=== PATIENT | female | born 1955 | race Caucasian/White ===

== ENCOUNTER → 2019-05-12 | Day surgery (SDC) | payer BC ==
[2019-05-12] VITALS (8 sets, daily range): BP systolic 98–127; BP diastolic 51–62
[~2019-05-12] MED LIST: ACETAMINOPHEN(*)1000 MG/100 ML 100 ML IVPB ONE; CEP500 PO; DEXAMETHASONE SOD PHOS 10MG/ML ONE; DOCU-416 PO; HALOPERIDOL LACT 5 MG/ML VIAL IM ONE; HYDROMORPHONE HCL 1 MG/ML SYRINGE IVP ONE; IOPAMIDOL 76% 100 ML INFUS BTL 100 ML ONE; IOPAMIDOL 76% 50 ML INFUS BTL 50 ML ONE; KETAMINE HCL 200 MG/20 ML MDV ONE; KETAMINE HCL-NS 50 MG/5 ML SYR IVP ONE; LIDOCAINE MPF 1% 5 ML VIAL ONE; LOR5 PO; MAG HYD/AL HYD/SIMETH 30ML UDC PO ONE; MIDAZOLAM 2 MG/2 ML VIAL ONE; NORMOSOL R SOLN(*) 1000 ML BAG 1,000 ML IV ONE; NS(*) 0.9% 1000 ML BAG 1,000 ML IV ONE; ONDANSETRON 4 MG/2 ML VIAL IVP ONE; ONDANSETRON 4 MG/2 ML VIAL ONE; PROPOFOL EMUL(*) 10MG/ML 20 ML 20 ML ONE; ROCURONIUM BR 10 MG/ML 5 ML SY 5 ML ONE; ROPIVACAINE 0.5% 20 ML VIAL ONE; SCOPOLAMINE 1.5 MG PATCH TD ONE; SUGAMMADEX SOD 200 MG/2 ML SDV ONE; TRAM-420 PO; cefTRIAXone(*) 1 GM VIAL 1 GM in WATER STERILE(*) 10 ML VIAL 10 ML IVP ONE; fentaNYL CITR 100 MCG/2 ML AMP IVP ONE; fentaNYL CITR 100 MCG/2 ML AMP ONE; fentaNYL CITR 250 MCG/5 ML AMP ONE
--- NOTE | 2019-05-12 05:51 | ER Report ---
History and Physical Time Seen By MD: 05:46 (YOANNA GILLIS DO) HPI/ROS CHIEF COMPLAINT: Abdominal pain HISTORY OF PRESENT ILLNESS: 63-year-old female presents ambulatory to the ER complaining of severe epigastric pain, onset 1 hour prior to arrival. Patient admits to vomiting several times on the way over in the car. Patient status post vaginal hysterectomy. Patient notes no dysuria, no frequency, no fever or chills. No change in her bowel habits. Patient reports she did have distant history of problems with her gallbladder and was advised to have her gallbladder removed. She describes it as shrunken and contracted. She never did follow-up. She thinks his pain might be similar. REVIEW OF SYSTEMS: Respiratory: No cough, no dyspnea. Cardiovascular: No chest pain, no palpitations. Gastrointestinal: As above Musculoskeletal: No back pain. (YOANNA GILLIS DO) Allergies: Coded Allergies: No Known Drug Allergies (Verified , 04/30/10) Home Meds Active Scripts Docusate Sodium (COLACE) 100 Mg Capsule, 1 CAP PO BID, #30 CAP 0 Refills TAKE WITH A FULL GLASS OF WATER Prov:HAYDER YOST MD 05/12/19 Tramadol Hcl (TRAMADOL HCL) 50 Mg Tablet, 1 TAB PO Q4H PRN for PAIN, #20 TAB 0 Refills Prov:HAYDER YOST MD 05/12/19 Reviewed Nurses Notes: Yes Old Medical Records Reviewed: Yes (YOANNA GILLIS DO) Hx Substance Use Disorder: No Hx Alcohol Use: No (YOANNA GILLIS DO) Constitutional Vital Sign - Last 24 Hours 05/12/19 05/12/19 05/12/19 05/12/19 05:53 05:55 06:00 06:19 Temp 98.1 Pulse 71 57 Resp 18 B/P (MAP) 137/79 (98) 137/79 112/62 (79) Pulse Ox 94 100 O2 Delivery Room Air 05/12/19 05/12/19 05/12/19 05/12/19 06:30 06:35 06:55 07:00 Pulse 75 64 B/P (MAP) 125/78 (94) 118/69 (85) Pulse Ox 100 91 05/12/19 05/12/19 05/12/19 05/12/19 07:15 07:30 07:35 07:55 Pulse 62 63 64 B/P (MAP) 109/60 (76) Pulse Ox 97 97 96 05/12/19 08:00 B/P (MAP) 123/66 (85) (ASHLEY DOMINGUEZ MD) Physical Exam General Appearance: The patient is alert, has no immediate need for airway protection and no current signs of toxicity. Vital signs stable, afebrile, pulse ox normal, cool, pale, dry skin Eyes: Pupils equal and round no injection. Respiratory: Chest is non tender, lungs are clear to auscultation. Cardiac: regular rate and rhythm Gastrointestinal: Abdomen is soft, mild epigastric and right upper quadrant tenderness, positive Hernandez sign no masses, bowel sounds normal. Musculoskeletal: Neck: Neck is supple and non tender. Extremities have full range of motion and are non tender. Skin: No rashes or lesions. DIFFERENTIAL DIAGNOSIS: After history and physical exam differential diagnosis was considered for abdominal pain including but not limited to appendicitis, cholecystitis, gastritis and urinary tract infection. (YOANNA GILLIS DO) Medical Decision Making Data Points Result Diagram: 05/12/19 0600 05/12/19 0600 Laboratory Hematology Test 05/12/19 06:00 White Blood Count 5.2 k/uL (4.5-11.0) Red Blood Count 4.96 M/uL (4.17-5.56) Hemoglobin 14.6 g/dL (12.0-16.0) Hematocrit 42.7 % (34.0-47.0) Mean Corpuscular Volume 86.1 fL (80.0-96.0) Mean Corpuscular Hemoglobin 29.5 pg (26.0-33.0) Mean Corpuscular Hemoglobin Concent 34.3 g/dL (32.0-36.0) Red Cell Distribution Width 13.6 % (11.5-14.5) Platelet Count 285 K/uL (150-450) Mean Platelet Volume 7.1 fL (7.2-11.1) L Neutrophils (%) (Auto) 52.4 % (39.4-72.5) Lymphocytes (%) (Auto) 35.1 % (17.6-49.6) Monocytes (%) (Auto) 6.7 % (4.1-12.4) Eosinophils (%) (Auto) 4.6 % (0.4-6.7) Basophils (%) (Auto) 1.2 % (0.3-1.4) Nucleated RBC Relative Count (auto) 0.1 /100WBC Neutrophils # (Auto) 2.7 K/uL (2.0-7.4) Lymphocytes # (Auto) 1.8 K/uL (1.3-3.6) Monocytes # (Auto) 0.3 K/uL (0.3-1.0) Eosinophils # (Auto) 0.2 K/uL (0.0-0.5) Basophils # (Auto) 0.1 K/uL (0.0-0.1) Nucleated RBC Absolute Count (auto) 0.00 K/uL Chemistry Test 05/12/19 00:00 05/12/19 06:00 Troponin I < 0.012 ng/ml Sodium Level 138 mmol/L (137-145) Potassium Level 3.5 mmol/L (3.5-5.0) Chloride Level 104 mmol/L (98-107) Carbon Dioxide Level 24 mmol/L (22-31) Blood Urea Nitrogen 13 mg/dl (7-18) Creatinine 0.80 mg/dl (0.52-1.04) Glomerular Filtration Rate Calc > 60.0 Random Glucose 153 mg/dl (75-110) Calcium Level 9.5 mg/dl (8.4-10.2) Total Bilirubin 0.5 mg/dl (0.2-1.3) Aspartate Amino Transf (AST/SGOT) 28 U/L (0-35) Alanine Aminotransferase (ALT/SGPT) 43 U/L (0-56) Alkaline Phosphatase 71 U/L (0-126) Total Protein 7.8 g/dl (6.3-8.2) Albumin 4.3 g/dl (3.5-5.0) Amylase Level 72 U/L (0-110) Lipase 122 U/L (23-300) Serology Test 05/12/19 00:00 Helicobacter pylori IgG Antibody Negative (NEGATIVE) Urinalysis Test 05/12/19 05:52 Urine Color Yellow Urine Clarity Clear Urine pH 5.0 pH (4.8-9.5) Urine Specific [place] 1.014 Urine Protein Negative mg/dL (NEGATIVE) Urine Glucose (UA) Negative mg/dL (NEGATIVE) Urine Ketones Negative mg/dL (NEGATIVE) Urine Blood Small (NEGATIVE) Urine Nitrite Negative (NEGATIVE) Urine Bilirubin Negative (NEGATIVE) Urine Urobilinogen Negative mg/dL (0.2-1.9) Urine Leukocyte Esterase Trace (NEGATIVE) Urine RBC 1 /HPF (0-2/HPF) Urine WBC 2 /HPF (0-5/HPF) Urine Squamous Epithelial Cells Few /LPF (</=FEW) Urine Bacteria Negative /HPF (NONE-FEW) Urine Mucus Few /HPF (NONE-FEW) (ASHLEY DOMINGUEZ MD) EKG/Imaging EKG Interpretation 12 lead EK Rhythm: normal sinus rhythm [place]: normal QRS: normal ST segments: normal, no evidence of ischemia or dysrhythmia, no previous EKGs for comparison (YOANNA GILLIS DO) Imaging FACILITY: [facility] [place] PATIENT NAME: Diane Mena : 1955 MR: [id number] V: [id number] EXAM DATE: ORDERING PHYSICIAN: YOANNA GILLIS TECHNOLOGIST: Location: Patient: Diane Mena : 1955 Visit/Account:[id number] Date of Sevice: 05/12/2019 GALLBLADDER HISTORY: Right upper quadrant pain COMPARISON: None. FINDINGS: Gallbladder: There are a few mobile shadowing gallstones. No gallbladder wall thickening. Positive sonographic Hernandez's sign.. Bile ducts: There is no biliary ductal dilation with the CBD measuring 4 mm. Liver: Negative. Pancreas: Negative. Right kidney: Negative. Upper abdominal aorta and IVC: Patent. Ascites: None visualized. Other findings: None significant IMPRESSION: 1. There are a few multiple shadowing gallstones. Positive sonographic Hernandez's sign although there is no gallbladder wall thickening. 2. Negative for biliary ductal dilatation. Report Dictated By: Morro Gutiérrez MD at 05/12/2019 8:22 AM Report E-Signed By: Morro Gutiérrez MD at 05/12/2019 8:26 AM WSN:[id number] FACILITY: [facility] [place] PATIENT NAME: Diane Mena : 1955 MR: [id number] V: [id number] EXAM DATE: [id number] ORDERING PHYSICIAN: ASHLEY DOMINGUEZ TECHNOLOGIST: Location: Patient: Diane Mena : 1955 Visit/Account:[id number] Date of Sevice: 05/12/2019 CT ABDOMEN PELVIS W/ CON HISTORY: epigastric and RUQ pain TECHNIQUE: Axial images were obtained through the abdomen and pelvis with intravenous contrast . One of the following dose optimization techniques was utilized in the performance of this exam: automated exposure control; adjustment of the mA and/or kv according to patient size; or use of iterative reconstruction technique. Specific details can be referenced in the facility's radiology CT exam operational policy. CONTRAST: 75 cc of Isovue-370 COMPARISON: Ultrasound 05/12/2019 FINDINGS: Visualized lung bases: Mild dependent bibasilar opacities, likely atelectasis. Hepatobiliary: Gallstones. Mild enhancement of the gallbladder wall. Common bile duct measures 6-7 mm with mild tapering towards the ampulla. Spleen: Negative. Adrenals: Negative. Pancreas: Negative. Kidneys/ureters/bladder: 3 mm right lower pole simple renal cysts. No hydronephrosis. Bowel/peritoneum/mesentery: Unusual segments of small bowel within the left upper quadrant with some fluid-filled and some containing food material measuring up to 2.5 cm. Minimal edema within the adjacent fat. Vessels: Negative. Lymph nodes: Negative. Pelvic genitourinary: Hysterectomy. Bones/body wall: 2 mm anterolisthesis from L4-L5 with mild facet arthropathy.. Other findings: None significant IMPRESSION: 1. Gallstones with mild enhancement of the gallbladder wall. There is a positive sonographic Hernandez's sign on earlier ultrasound. Recommend clinical correlation for cholecystitis. Common bile duct measures 6-7 mm with tapering towards ampulla. 2. Unusual appearing small bowel loops within the left upper quadrant measuring up to 2.5 cm with minimal edema within the adjacent fat without discrete obstructive features which can be seen with enteritis. Report Dictated By: Morro Gutiérrez MD at 05/12/2019 9:03 AM Report E-Signed By: Morro Gutiérrez MD at 05/12/2019 9:20 AM WSN:[id number] (ASHLEY DOMINGUEZ MD) ED Course/Re-evaluation Clinical Indication for ER IV: Hydration, IV Access ED Course Care turned over to Dr. Walker at shift change with diagnostic ultrasound of the right upper quadrant or CT scan abdomen and pelvis with IV contrast pending. The testis been ordered, but the network operations technician was unavailable. Patient's pain was under control. Her laboratory studies were unremarkable. Decision to Disposition Date: May 12, 2019 Decision to Disposition Time: 06:09 (YOANNA GILLIS DO) ED Course 05/12/2019 11:41:46 am patient with likely atypical presentation of acute cholecystitis based on presentation patient with persistent pain. Case was discussed with the on-call surgeon Dr. Yost; he would like us to start antibiotics keep the patient nothing by mouth and she will be going to the OR later this morning. Patient was made aware and has no questions or concerns at time of disposition. 05/12/2019 12:26:[address] Bernal has now come to see the patient. I thought process is perhaps this is more of a gastritis type picture he would like us to have the fentanyl that the patient just got wear off and try GI cocktail if this seems to help we will discharge her on proton pump inhibitor. However if this does not help her pain Dr. Bernal will consider taking her gallbladder out. Decision to Disposition Date: May 12, 2019 Turned Over Accepted care of patient at 0700; labs normal, except for slightly elevated glucose, but doubt this is the cause of patient's symptoms. Awaiting ultrasound, patients pain is currently undercontrol. (ASHLEY DOMINGUEZ MD) Depart Departure Latest Vital Signs Vital Signs Date Time Temp Pulse Resp B/P (MAP) Pulse Ox O2 Delivery O2 Flow Rate FiO2 05/12/19 08:00 123/66 (85) 05/12/19 07:55 64 96 05/12/19 05:55 98.1 18 Room Air (ASHLEY DOMINGUEZ MD) Impression: Primary Impression: Acute cholecystitis Condition: Improved Disposition: ADMIT FROM ER TO OR (To Dr Yost) New Scripts Docusate Sodium (COLACE) 100 Mg Capsule 1 CAP PO BID, #30 CAP 0 Refills TAKE WITH A FULL GLASS OF WATER Prov: HAYDER YOST MD 05/12/19 Tramadol Hcl (TRAMADOL HCL) 50 Mg Tablet 1 TAB PO Q4H PRN for PAIN, #20 TAB 0 Refills Prov: HAYDER YOST MD 05/12/19 YOANNA GILLIS DO May 12, 2019 05:50 ASHLEY DOMINGUEZ MD May 12, 2019 07:20
--- NOTE | 2019-05-12 06:16 | EKG ---
FACILITY: [facility] PATIENT NAME: MAURIZIO ARREGUIN : [id number] MR: [id number] V: [id number] EXAM DATE: ORDERING PHYSICIAN: YOANNA GILLIS TECHNOLOGIST: MERLYN Test Reason : NAUSEA Blood Pressure : / mmHG Vent. Rate : 063 BPM Atrial Rate : 063 BPM P-R Int : 172 ms QRS Dur : 080 ms QT Int : 446 ms P-R-T Axes : 011 050 027 degrees QTc Int : 456 ms Normal sinus rhythm Normal ECG No previous ECGs available Confirmed by HAYDER GALEANA ([id number]) on 05/12/2019 6:40:38 AM Referred By: Confirmed By:HAYDER GALEANA
[2019-05-12 06:20] LABS: PLATELET COUNT, AUTOMATED 285 K/uL (150-450)
--- NOTE | 2019-05-12 08:34 | RADIOLOGY IMAGING REPORT ---
FACILITY: [facility] [place] PATIENT NAME: Diane Mena : 1955 MR: [id number] V: [id number] EXAM DATE: ORDERING PHYSICIAN: YOANNA GILLIS TECHNOLOGIST: Location: [facility] [place] Patient: Diane Mena : 1955 Visit/Account:[id number] Date of Sevice: 05/12/2019 GALLBLADDER HISTORY: Right upper quadrant pain COMPARISON: None. FINDINGS: Gallbladder: There are a few mobile shadowing gallstones. No gallbladder wall thickening. Positive so nographic Hernandez's sign.. Bile ducts: There is no biliary ductal dilation with the CBD measuring 4 mm. Liver: Negative. Pancreas: Negative. Right kidney: Negative. Upper abdominal aorta and IVC: Patent. Ascites: None visualized. Other findings: None significant IMPRESSION: 1. There are a few multiple shadowing gallstones. Positive sonographic Hernandez's sign although there i s no gallbladder wall thickening. 2. Negative for biliary ductal dilatation. Report Dictated By: Morro Gutiérrez MD at 05/12/2019 8:22 AM Report E-Signed By: Morro Gutiérrez MD at 05/12/2019 8:26 AM WSN:[id number]
--- NOTE | 2019-05-12 09:27 | RADIOLOGY IMAGING REPORT ---
FACILITY: [facility] PATIENT NAME: Diane Mena : 1955 MR: [id number] V: [id number] EXAM DATE: ORDERING PHYSICIAN: ASHLEY DOMINGUEZ TECHNOLOGIST: Location: [facility] [place] Patient: Diane Mena : 1955 Visit/Account:[id number] Date of Sevice: 05/12/2019 CT ABDOMEN PELVIS W/ CON HISTORY: epigastric and RUQ pain TECHNIQUE: Axial images were obtained through the abdomen and pelvis with intravenous contrast . One of the following dose optimization techniques was utilized in the performance of this exam: automate d exposure control; adjustment of the mA and/or kv according to patient size; or use of iterative rec onstruction technique. Specific details can be referenced in the facility's radiology CT exam operati onal policy. CONTRAST: 75 cc of Isovue-370 COMPARISON: Ultrasound 05/12/2019 FINDINGS: Visualized lung bases: Mild dependent bibasilar opacities, likely atelectasis. Hepatobiliary: Gallstones. Mild enhancement of the gallbladder wall. Common bile duct measures 6-7 m m with mild tapering towards the ampulla. Spleen: Negative. Adrenals: Negative. Pancreas: Negative. Kidneys/ureters/bladder: 3 mm right lower pole simple renal cysts. No hydronephrosis. Bowel/peritoneum/mesentery: Unusual segments of small bowel within the left upper quadrant with some fluid-filled and some containing food material measuring up to 2.5 cm. Minimal edema within the elias cent fat. Vessels: Negative. Lymph nodes: Negative. Pelvic genitourinary: Hysterectomy. Bones/body wall: 2 mm anterolisthesis from L4-L5 with mild facet arthropathy.. Other findings: None significant IMPRESSION: 1. Gallstones with mild enhancement of the gallbladder wall. There is a positive sonographic Hernandez's sign on earlier ultrasound. Recommend clinical correlation for cholecystitis. Common bile duct measu res 6-7 mm with tapering towards ampulla. 2. Unusual appearing small bowel loops within the left upper quadrant measuring up to 2.5 cm with min imal edema within the adjacent fat without discrete obstructive features which can be seen with enter itis. Report Dictated By: Morro Gutiérrez MD at 05/12/2019 9:03 AM Report E-Signed By: Morro Gutiérrez MD at 05/12/2019 9:20 AM WSN:[id number]
--- NOTE | 2019-05-12 13:56 | Gen Surgery History & Physical ---
History of Present Illness Chief Complaint Epigastric abdominal pain History of Present Illness 63-year-old female comes into the emergency room with upper abdominal pain mainly in her epigastrium that started at about 4:00 this morning, almost 10 hours ago from the time of this note. She reports she has had intermittent upper abdominal symptoms and she has even been told that she's had gallbladder issues starting even as long as 20 years ago but she didn't want to have her gallbladder out and so she has just been avoiding triggers which includes coffee. She reports even though she knows it is a trigger she does drink coffee daily. She's had nausea but no emesis. No fevers or chills, no constipation or diarrhea. She had a vaginal hysterectomy but no abdominal surgeries other than this. We tried a GI cocktail in the emergency room since her pain is in the epigastrium to see if it resolves but it did not and so she is asking to have her gallbladder removed. History Allergies: Coded Allergies: No Known Drug Allergies (Verified , 04/30/10) Review of Systems All Systems Reviewed/Normal: Yes, Except as Noted Gastrointestinal: Nausea, Abdominal Pain Exam General Appearance: Alert, Awake, No Acute Distress, Afebrile Neuro: No Gross deficits Eyes: PERRLA GI: Other (epigastric tenderness to palpation) Extremities: Warm, Perfused Psych: Alert & Oriented X3, Appropriate Mood & Affect Medical Decision Making Data Points Result Diagram: 05/12/19 0600 05/12/19 0600 Assessment and Plan Problems: (1) Acute cholecystitis Status: Acute Assessment & Plan: 05/12/19: We'll admit the patient, start IV antibiotics, start IV fluids, and plan on laparoscopic cholecystectomy today. I have e xplained this plan including the surgery in great detail along with the alternatives, and the risks. I have emphasized the risks of potential common duct injury, duodenal or colon injury, small bowel injury, bile leak, or need to convert to an open surgery. I've also emphasized that given the relative normal appearance of her gallbladder on ultrasound other than the presence of gallstones there is a chance she could have persistent symptoms after surgery if the gallbladder is not the cause of her symptoms. Since the GI cocktail did not lead to any improvement in her symptoms and since her symptoms are unremitting, I recommended cholecystectomy and she seems agreeable with this. She indicates her understanding of this discussion and her questions have been answered. She would like to proceed with this plan including laparoscopic cholecystectomy. Condition Stable Time Spent: < 30 min Venous Thromboembolism VTE Risk Physician Assess for VTE Risk: Yes Patient's VTE Risk: Low VTE Diagnostic Test 2 Days Prior to Admit: No Antithrombotics Is Pt On Any Antithrombotics?: No HAYDER YOST MD May 12, 2019 13:56
--- NOTE | 2019-05-12 15:12 | Short(Outpt) Discharge Summary ---
Discharge Summary Reason for Hosp/Final Diag: (1) Acute cholecystitis Status: Acute Hospital Course & Plan: 05/12/19: We'll admit the patient, start IV antibiotics, start IV fluids, and plan on laparoscopic cholecystectomy today. I have explained this plan including the surgery in great detail along with the alternatives, and the risks. I have emphasized the risks of potential common duct injury, duodenal or colon injury, small bowel injury, bile leak, or need to convert to an open surgery. I've also emphasized that given the relative normal appearance of her gallbladder on ultrasound other than the presence of gallstones there is a chance she could have persistent symptoms after surgery if the gallbladder is not the cause of her symptoms. Since the GI cocktail did not lead to any improvement in her symptoms and since her symptoms are unremitting, I recommended cholecystectomy and she seems agreeable with this. She indicates her understanding of this discussion and her questions have been answered. She would like to proceed with this plan including laparoscopic cholecystectomy. 05/12/19 (postop): Lap sonali completed without problems. Pt tolerated the procedure without issues. Will d/c to home from PACU. Departure Discharge to: Home, Self Care Discharge Instructions Home Meds Active Scripts Docusate Sodium (COLACE) 100 Mg Capsule, 1 CAP PO BID, #30 CAP 0 Refills TAKE WITH A FULL GLASS OF WATER Prov:HAYDER YOST MD 05/12/19 Tramadol Hcl (TRAMADOL HCL) 50 Mg Tablet, 1 TAB PO Q4H PRN for PAIN, #20 TAB 0 Refills Prov:HAYDER YOST MD 05/12/19 Follow up Referrals: General Surgery - 06/03/19 @ Surgery, General with HAYDER YOST MD You have a follow up appointment scheduled with Dr. Yost on 06/03/19, at 4:30pm. Diet: Regular Activity: As Tolerated Special Instructions: You may remove the white surgical dressings on 05/14/19, then you can shower. After showering, leave the incisions open to air but leave the steristrips in place until they fall off on their own. Do not immerse the incisions for 2 weeks. Avoid any activity that involves straining or lifting more than 10 pounds for 1 week after surgery. No driving while taking the tramadol pain pills. HAYDER YOST MD May 12, 2019 15:12
--- NOTE | 2019-05-12 15:19 | Post Operative Progress Note ---
Post Operative Progress Note Date: May 12, 2019 Time: 15:08 Surgeon: Tim Dictation number: [id number] Anesthesia: GETA by Dr. Langston Pre-Op Diagnosis: Symptomatic cholelithiasis with unremitting biliary colic Post-Op Diagnosis: SEFERINO Findings: C/W dx, normal IOC Procedure(s): Lap sonali with cholangiogram Specimen Removed:(May be N/A): GB and contents Complications: None Fluids: See anesthesia record Estimated Blood Loss: Minimal Date OP Note Dictated: May 12, 2019 Time OP Note Dictated: 15:09 HAYDER YOST MD May 12, 2019 15:19
--- NOTE | 2019-05-13 03:48 | OPERATIVE REPORT 1 ---
EVENT DATE: May 12, 2019 SURGEON: Rudy Dumont MD ANESTHESIOLOGIST: Harish Langston MD ANESTHESIA: General endotracheal anesthesia. PREOPERATIVE DIAGNOSIS Symptomatic cholelithiasis with unremitting biliary colic. POSTOPERATIVE DIAGNOSIS Symptomatic cholelithiasis with unremitting biliary colic. PROCEDURE PERFORMED Laparoscopic cholecystectomy with intraoperative cholangiogram. COMPLICATIONS None. CONDITION Stable. BLOOD LOSS Minimal. INDICATIONS FOR PROCEDURE This is a 63-year-old female who presented to the emergency room with unremitting epigastric pain that started at 4 this morning and failed to get better with any intervention other than fentanyl. A GI cocktail was attempted, but this failed to improve her symptoms either. She was also having associated nausea. Right upper quadrant ultrasound revealed gallstones but no obvious inflammation. Labs were all normal. Discussed her options with her, and ultimately she decided to proceed with cholecystectomy. DESCRIPTION OF PROCEDURE The patient was brought to the operating room and placed supine on the operating table. General endotracheal anesthesia was administered, and her abdomen was prepped and draped in a sterile fashion. A time-out was completed, and I injected the infraumbilical skin with 0.5% ropivacaine plain. I made a curvilinear smiley-face incision in the infraumbilical rim and dissected through the dermis and subcutaneous fat. I identified the midline fascia and made a vertical incision in the midline fascia, grasped the fascial edges with Shay clamps and retracted the fascia toward the ceiling. I then bluntly entered the peritoneal cavity with my finger, placed two interrupted 0 Vicryl sutures transversely through the vertical fascial defect, and inserted a 12 mm Nava- type port through this wound and secured it in place with the sutures. I insufflated the abdomen to a pressure of 15 mmHg and inserted a 5 mm, [id number] scope through this port. Next, under direct visualization I placed an epigastric midline 5 mm port and two right upper quadrant 5 mm ports. I then had the patient placed in reverse Trendelenburg and planed toward her left to move the viscera from the right upper quadrant. I then identified the gallbladder and retracted the fundus toward the patient's right shoulder and retracted the infundibulum toward the patient's right. The gallbladder did appear somewhat fibrotic but did not necessarily appear acutely inflamed. I divided the peritoneum overlying the infundibulum in both the medial and lateral aspects of the gallbladder. I then stripped the peritoneum and subperitoneal contents down from the infundibulum and around the cystic duct and arteries. The cystic duct and arteries were easily identified, and I dissected around each of these, cleaning them off, and then clipped the artery proximally and distally with Endoclips, and then clipped the duct at the infundibulocystic duct junction with a single Endoclip. I made a ductotomy just distal to the clip. I then milked the duct from distal to proximal with a [place] dissector, and there was no debris or stones in the cystic duct. I then completed a cholangiogram, which revealed that I was in the cystic duct away from the common duct structures, and I was able to identify the common hepatic duct, common bile duct, and intrahepatic biliary system. I observed contrast flowing into the duodenum. I also identified the pancreatic duct, which also filled without problems. After cholangiogram was completed, I removed the cholangiocatheter and clipped the duct distal to the ductotomy with three clips, but well away from the common duct, which was easily visible during the surgery due to the patient's thin body habitus. I then divided the duct and artery between clips and then divided the posterior attachment to the gallbladder, it from the gallbladder fossa, and then placed the gallbladder in a surgical specimen retrieval bag and removed it from the abdomen through the umbilical port site. I then irrigated and dried the right upper quadrant. There was a small bit of oozing from the gallbladder fossa, and this was controlled with electrocautery. I watched this for a while, and there was no further bleeding. The cystic duct and artery stumps were secured with clips which were in good position, and there was no bile leak or bleeding from the cystic duct or artery stumps or the gallbladder fossa. I removed all irrigation fluid from the right upper quadrant. I then removed the 5 mm ports, desufflated the abdomen, removed from the camera followed by the umbilical port, and then closed the midline fascial incision with another [id number] 0 Vicryl suture. I then tied all three of these down with good reapproximation of the fascial edges and no remaining fascial defect. I then closed the skin at each port site with 4-0 Monocryl subcuticular sutures. The skin was cleaned and dried and Steri-Strips were applied, followed by sterile surgical dressings. The patient was awakened and extubated in the operating room and transported to the recovery room in stable condition, having tolerated the procedure without apparent problems. ALMA
--- NOTE | 2019-05-13 07:24 | RADIOLOGY IMAGING REPORT ---
FACILITY: [facility] PATIENT NAME: Diane Mena : 1955 MR: [id number] V: [id number] EXAM DATE: ORDERING PHYSICIAN: HAYDER YOST TECHNOLOGIST: Location: [facility] Patient: Diane Mena : 1955 Visit/Account:[id number] Date of Sevice: 05/12/2019 CHOLANGIOGRAM OPERATIVE INDICATION: Cholecystitis. Intraoperative cholangiogram. PROCEDURE: Fluoroscopic guidance was provided for Dr. Yost. FLUOROSCOPY DOSE: 1.3823 mGy cumulative dose (Ka,r)/air Kerma FINDINGS: Initial image demonstrates biliary cannulation with subsequent opacification of the common duct. There are 2 small filling defects in the common duct that may be tiny stones versus air bubbles . No intrahepatic ductal dilation. Pancreatic duct is partially opacified. Please see the operative r eport that is dictated separately. IMPRESSION: Fluoroscopy was provided. Report Dictated By: Alena Daly at 05/13/2019 7:13 AM Report E-Signed By: Alena Daly at 05/13/2019 7:15 AM WSN:[id number]
== END ==
LOC: ER 05:53 → OR 11:11
PROVIDERS: ATTEND Surgery
DX: K80.10 Calculus of gallbladder with chronic cholecystitis without obstruction (principal)
CPT/HCPCS: 47563; 74177; 74300; 76705; 81001; 82150; 83690; 84484; 85025; 86677; 88304; 93005; A4216; J0131; J0696; J1100; J1170; J1630; J2001; J2250; J2405; J2704; J2795; J3010; J3490; J7030; Q9967; 82040; 82247; 82310; 82374; 82435; 82565; 82947; 84075; 84132; 84155; 84295; 84450; 84460; 84520